=== PATIENT | female | born 1990 | race Hispanic/Latino ===

== ENCOUNTER 2024-11-21 21:52 | Emergency (ER) | payer SELFPAY ==
[~2024-11-21] VITALS: Ht 154.9 cm; Wt 78.0 kg
[~2024-11-21 21:52] MED LIST: GENTAMICIN15 ML/BTL OP
[2024-11-21] MEDS ORDERED: KETOROLAC TROMETHAMINE 30 MG/ML SDV IV ONE (23:00)
[2024-11-21] MEDS ORDERED: SODIUM CHLORIDE 0.9% 1,000 ML IV ONE (23:00)
[2024-11-21] MEDS ORDERED: SUMAtriptan SUCCINATE 6 MG/0.5 ML SDV SC ONE (23:00)
[2024-11-21] MEDS ORDERED: Acetaminophen 300 MG/Codeine 30 MG/COMBO PO ONE (23:00)
[2024-11-21 23:16] LABS: URINE BILIRUBIN - DIPSTICK Negative (NEGATIVE); URINE BLOOD DIPSTICK Trace-intact (NEGATIVE); URINE GLUCOSE - DIPSTICK Negative (NEGATIVE); URINE KETONE Negative (NEGATIVE); URINE PROTEIN - DIPSTICK Negative (NEG-TRACE); URINE UROBILINOGEN - DIPSTICK 0.2 E.U./dL (0.2)
[2024-11-21 23:19] VITALS: BP 150/83
[2024-11-21 23:21] LABS: BASO% 0.5 % (0-3); EOS% 9.9 % (0-8); HEMATOCRIT 42.9 % (37.0-47.0); IMMATURE GRANULOCYTES 0.1 % (0.0-5.0); LYMPH% 22.8 % (15-41); MEAN CELL VOLUME 90.9 fL CALC (80.0-100.0); MEAN CORPUSCULAR HGB 29.7 pG CALC (26.0-32.0); MEAN CORPUSCULAR HGB CONC 32.6 g/dL CAL (32.0-36.0); MONO% 6.3 % (2-13); NEUT# 7.72 thou/uL (2.00-7.15); NEUT% 60.4 % (42-76); RED BLOOD COUNT 4.72 mill/uL (4.20-5.60); RED CELL DISTRI WIDTH 12.3 % (11.5-15.5)
[2024-11-21 23:30] VITALS: BP 136/79
[2024-11-21 23:42] LABS: ALBUMIN 4.3 g/dL (3.2-5.0); BILIRUBIN, TOTAL 0.3 mg/dL (0.02-1.3); CREATININE 0.9 mg/dL (0.5-1.0); POTASSIUM 3.8 mmol/l (3.5-5.1); TOTAL PROTEIN 7.6 g/dL (6.3-8.2)
[2024-11-21 23:44] LABS: URINE COLOR Yellow; URINE LEUK ESTERASE Moderate (NEGATIVE); URINE NITRITE - DIPSTICK Negative (Negative)
[2024-11-21 23:45] LABS: URINE EPITHELIAL CELLS MODERATE EPI/hpf (0-FEW)
[2024-11-21 23:46] LABS: URINE BACTERIA MODERATE hpf
[2024-11-22] MEDS ORDERED: IMITREX100 M1 PO (00:35)
[2024-11-22 00:45] VITALS: BP 136/79
== END 2024-11-22 00:45 | disposition home or self-care (01) | DRG 103 ==
LOC: ED 21:52
PROVIDERS: Family Medicine
DX: G43.109 Migraine with aura, not intractable, without status migrainosus (principal)
CPT/HCPCS: J1100; J3030